=== PATIENT | female | born 1980 | race Caucasian/White ===

== ENCOUNTER 2022-10-06 14:40 | Outpatient (CLI) | payer BC, SELFPAY ==
[2022-10-06 17:26] LABS: Chloride* 108 mmol/L (96-114)
[2022-10-06 17:27] LABS: Potassium* 3.9 mmol/L (3.6-5.1); Sodium* 141 mmol/L (135-149)
[2022-10-06 17:29] LABS: Creatinine* 0.7 mg/dL (0.5-1.5); Estimated Glomerular Filt Rate 113 ml/min
[2022-10-06 17:30] LABS: Blood Urea Nitrogen* 11 mg/dL (5-24); Calcium* 8.8 mg/dL (8.4-10.6); Carbon Dioxide* 24 mmol/L (20-32); Glucose* 75 mg/dL (60-115)
== END 2022-10-06 14:41 | disposition home or self-care (01) ==
PROVIDERS: PCP Family Medicine; Visit Provider Family Medicine
DX: Z13.1 Encounter for screening for diabetes mellitus (principal); Z13.29 Encounter for screening for other suspected endocrine disorder
CPT/HCPCS: 80048; 84443

== ENCOUNTER 2023-01-05 12:40 | Outpatient (CLI) | payer BC, SELFPAY ==
--- NOTE | 2023-01-05 13:20 | CRLHL7_ITS ---
For Patients: As a result of the Century Cures Act, medical imaging exams and procedure reports are released immediately into your electronic medical record. You may view this report before your referring provider. If you have questions, please contact your health care provider. BILATERAL SCREENING MAMMOGRAM WITH COMPUTER-AIDED DETECTION AND TOMOSYNTHESIS TECHNIQUE: CC and MLO views were obtained. These mammographic images have been obtained using full-field digital technique. These mammographic images were interpreted with the benefit of computer-aided detection. Breast Tomosynthesis was used in this interpretation. COMPARISON FILM: Baseline. FINDINGS: The breasts are heterogeneously dense, which may obscure small masses IMPRESSION: There is no radiographic evidence for malignancy. ASSESSMENT: BI-RADS Category 1: Negative RECOMMENDATION: Routine screening mammogram in 1 year. A lay language report of this examination will be provided to the patient. Suhail Burgos M.D. Diagnostic/Nuclear Medicine Radiologist [email or web address] MARY/Dictated by: Suhail Burgos MD @ 01/08/2023 8:23:00 AM (Electronically Signed)
== END 2023-01-05 12:41 | disposition home or self-care (01) ==
LOC: MAMMO 12:41
PROVIDERS: PCP Family Medicine; Visit Provider Family Medicine
DX: Z12.31 Encounter for screening mammogram for malignant neoplasm of breast (principal); R92.2 Inconclusive mammogram
CPT/HCPCS: 77063; 77067

== ENCOUNTER 2024-01-11 12:48 | Outpatient (CLI) | payer BC, SELFPAY ==
--- NOTE | 2024-01-11 13:00 | MM_ITS ---
Patient: AILYN ANTONIO Facility:?[facility] Patient ID:?[id number] Site Patient ID:?[id number] Site :?[id number] Study:?XRay-Breast Bilateral 3D W/CAD-01/11/2024 2:20:17 PM Ordering Physician:Cecily Final Report: BILATERAL SCREENING MAMMOGRAM WITH COMPUTER-AIDED DETECTION AND TOMOSYNTHESIS TECHNIQUE: CC and MLO views were obtained. These mammographic images have been obtained using full-field digital technique. These mammographic images were interpreted with the benefit of computer-aided detection. Breast Tomosynthesis was used in this interpretation. COMPARISON FILM: 01/05/23. FINDINGS: The breasts are heterogeneously dense, which may obscure small masses. IMPRESSION: There is no radiographic evidence for malignancy. ASSESSMENT: BI-RADS Category 1: Negative RECOMMENDATION: Routine screening mammogram in 1 year. A lay language report of this examination will be provided to the patient. Christos Fitch M.D. Diagnostic Radiologist [email or web address] DSM/sp R& Transcribed: 3:48 p.m. SP/Dictated by: Christos Fitch MD @ 01/14/2024 10:22:00 AM Signed by:?Christos Fitch MD @01/14/2024 4:00:52 PM (Electronic Signature)
== END 2024-01-11 12:49 | disposition home or self-care (01) ==
LOC: MAMMO 12:52
PROVIDERS: PCP Family Medicine; Visit Provider Family Medicine
DX: Z12.31 Encounter for screening mammogram for malignant neoplasm of breast (principal); R92.2 Inconclusive mammogram
CPT/HCPCS: 77063; 77067